=== PATIENT | female | born 1985 | race Caucasian/White ===

== ENCOUNTER 2017-07-12 18:54 | Emergency (ER) | payer OTHER, MEDICAID ==
[~2017-07-12] VITALS: Ht 165.1 cm; Wt 79.4 kg
[~2017-07-12 18:54] MED LIST: CLONAZEPAM 0.50.5 M1 PO; LEVOTHYROXIN0.025 MG PO; PRINIVIL20 MG PO
[2017-07-12] MEDS ORDERED: METHYLDOPA500 MG PO (19:14)
[2017-07-12] MEDS ORDERED: LATUDA60 MG PO (19:15)
[2017-07-12 19:47] LABS: ABSOLUTE BASOPHILS 0.1 thou/uL (0.0-0.2); ABSOLUTE EOSINOPHILS 0.2 thou/uL (0.0-0.7); ABSOLUTE LYMPHOCYTES 2.8 thou/uL (0.8-5.3); ABSOLUTE MONOCYTES 0.9 thou/uL (0.0-1.2); ABSOLUTE NEUTROPHILS 6.9 thou/uL (1.6-8.1); BASOPHILS 0.5 %; EOSINOPHILS 1.7 %; HEMATOCRIT 35.3 % (37.0-47.0); HEMOGLOBIN 12.3 gm/dL (12.0-15.0); LYMPHOCYTES 25.7 %; MCH 30.7 pg (26.0-34.0); MCV 87.7 fL (80.0-100.0); MONOCYTES 8.7 %; MPV 9.1 fl. (7.2-11.1); NUCLEATED RBCS 0 /100WBC; PLATELET COUNT* 258 thou/uL (150-400); POLYS 63.4 %; RBC 4.02 mil/uL (4.20-5.00); RDW-CV 16.4 % (10.5-14.5); WBC 10.9 thou/uL (4.0-11.0)
[2017-07-12 19:48] LABS: URINE BILIRUBIN NEGATIVE (Negative); URINE BLOOD NEGATIVE (Negative); URINE CLARITY CLEAR; URINE COLOR YELLOW; URINE GLUCOSE-RANDOM NEGATIVE (Negative); URINE KETONES NEGATIVE (Negative); URINE LEUKOCYTES NEGATIVE (Negative); URINE NITRITE NEGATIVE (Negative); URINE PROTEIN NEGATIVE (Negative); URINE SPECIFIC GRAVITY 1.025 (1.005-1.030)
[2017-07-12 19:52] LABS: APTT 25.3 Seconds (25.0-31.3); PROTIME 9.7 Seconds (9.20-11.50)
[2017-07-12 19:53] LABS: CALCIUM 9.5 mg/dL (8.5-10.1); CREATININE 0.8 mg/dL (0.6-1.3); POTASSIUM 3.6 mmol/L (3.5-5.1)
[2017-07-12 19:58] LABS: ALBUMIN 3.2 g/dL (3.4-5.0); TOTAL BILIRUBIN 0.3 mg/dL (<0.1-1.0); TOTAL PROTEIN 6.9 g/dL (6.4-8.2)
[2017-07-12 22:01] VITALS: BP 136/75
--- NOTE | 2017-07-13 11:03 | EKG ---
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 Mccormack : 1985 Requested By: Whitney Kidd Order Number: [id number] MD: Ty Monet Measurements Intervals [place] Rate: 74 P: 18 NV: 116 QRS: 12 QRSD: 104 T: 122 QT: 439 QTc: 487 Interpretive Statements Sinus rhythm Borderline short NV interval LVH with secondary repolarization abnormality Borderline ST elevation, inferior leads Borderline prolonged QT interval No previous ECG available for comparison Electronically Signed On 07-13-2017 11:03:00 CDT by Ty Monet [email or web address] <ELECTRONICALLY SIGNED> By: Ty Monet MD, [facility] 07/13/173 50 50 Ty Monet MD, FAC /EPI
== END 2017-07-12 22:02 | disposition short-term general hospital (02) ==
LOC: M.ERS 18:54
PROVIDERS: Physician Assistant
DX: O16.1 Unspecified maternal hypertension, first trimester (principal); O99.281 Endocrine, nutritional and metabolic diseases complicating pregnancy, first trimester; E03.9 Hypothyroidism, unspecified; Z3A.14 14 weeks gestation of pregnancy

== ENCOUNTER 2020-03-20 22:45 | Emergency (ER) | payer OTHER, MEDICAID ==
[~2020-03-20] VITALS: Ht 165.1 cm; Wt 61.2 kg
[~2020-03-20 22:45] MED LIST changes: +LATUDA60 MG PO; +METHYLDOPA500 MG PO
[2020-03-21] MEDS ORDERED: PREDNISONE50 MG PO (02:07)
[2020-03-21] MEDS ORDERED: BLOOD PRESSURE1 EACH TOP (02:08)
[2020-03-21] MEDS ORDERED: CLEOCIN HCL300 MG PO (02:09)
[2020-03-21 02:10] VITALS: BP 187/76
== END 2020-03-21 02:12 | disposition home or self-care (01) ==
LOC: M.ERS 22:45
DX: T78.49XA Other allergy, initial encounter (principal); I10 Essential (primary) hypertension; Z88.6 Allergy status to analgesic agent; Z79.899 Other long term (current) drug therapy; X58.XXXA Exposure to other specified factors, initial encounter

== ENCOUNTER 2021-01-02 18:34 | Emergency (ER) | payer OTHER, MEDICAID ==
[~2021-01-02] VITALS: Ht 165.1 cm; Wt 63.5 kg
[~2021-01-02 18:34] MED LIST changes: +BLOOD PRESSURE1 EACH TOP; +CLEOCIN HCL300 MG PO; +PREDNISONE50 MG PO
[2021-01-02] MEDS ORDERED: LEVO-T100 MCG PO (19:02)
[2021-01-02] MEDS ORDERED: LAMOTRIGINE250 MG PO (19:03)
[2021-01-02] MEDS ORDERED: BACLOFEN 10MG T10 MG PO (19:03)
[2021-01-02] MEDS ORDERED: NORVASC10 MG PO (19:03)
[2021-01-02] MEDS ORDERED: LISINOPRIL-HCT1 EAC2 PO (19:03)
[2021-01-02] MEDS ORDERED: CEPHALEXIN500 MG PO (19:44)
[2021-01-02] MEDS ORDERED: IBUPROFEN 600600 M1 PO (19:44)
[2021-01-02] MEDS ORDERED: BACTRIM DS TAB1 EACH PO (19:44)
[2021-01-02 20:00] VITALS: BP 177/113
== END 2021-01-02 20:00 | disposition home or self-care (01) ==
LOC: M.ERS 18:34
DX: L02.413 Cutaneous abscess of right upper limb (principal); I10 Essential (primary) hypertension; F41.9 Anxiety disorder, unspecified; E03.9 Hypothyroidism, unspecified; Z79.899 Other long term (current) drug therapy; Z88.0 Allergy status to penicillin; Z88.5 Allergy status to narcotic agent